=== PATIENT | female | born 1985 | race Caucasian/White ===

== ENCOUNTER 2022-02-13 08:54 | Day surgery (SDC) | payer BC ==
[2022-02-10 09:32] VITALS: BMI 19.2
[2022-02-13] MEDS ORDERED: Isosulfan Blue 50 MG/5 ML VIAL ONE (11:20)
[2022-02-13] MEDS ORDERED: SUGAMMADEX SODIUM 200 MG/2 ML VIAL ONE (11:56)
[2022-02-13] MEDS ORDERED: CEFAZOLIN 2 GM VIAL ONE (11:57)
[2022-02-13] MEDS ORDERED: HYDROmorphone 0.5 MG/0.5 ML SYRINGE ONE (11:57)
[2022-02-13] MEDS ORDERED: Propofol 1,000 MG/100 ML VIAL IV ONE (11:57)
[2022-02-13] MEDS ORDERED: Midazolam HCl 2 mg/2 ml Vial ONE (12:08)
[2022-02-13] MEDS ORDERED: EPINEPHrine 1 MG/ML AMP ONE (14:34)
[2022-02-13] MEDS ORDERED: Bupivacaine PF 0.5% 30 ML VIAL ONE (14:34)
[2022-02-13] MEDS ORDERED: HYDROcodone/Acetaminophen 5/325 mg Tablet PO PRN (15:35)
== END 2022-02-13 16:25 | disposition home or self-care (01) ==
LOC: CSHSDC 08:54
PROVIDERS: ATTEND Surgery
PROC: 07B50ZX Excision of Right Axillary Lymphatic, Open Approach, Diagnostic (ICD-10-PCS; principal; 2022-02-13)
PROC: 0HTT0ZZ Resection of Right Breast, Open Approach (ICD-10-PCS; principal; 2022-02-13)
DX: C50.411 Malignant neoplasm of upper-outer quadrant of right female breast (principal); C50.811 Malignant neoplasm of overlapping sites of right female breast; C77.3 Secondary and unspecified malignant neoplasm of axilla and upper limb lymph nodes; Z79.899 Other long term (current) drug therapy
CPT/HCPCS: 78195; 88305; 88307; A9541; C1713; J0171; J1170; J2250; J2704; Q9968; S0020

== ENCOUNTER 2022-03-27 15:08 | Outpatient (CLI) | payer BC | END 2022-03-27 15:09 | disposition home or self-care (01) | LOC: CSHRAD 15:08 | PROVIDERS: ATTEND Nurse Practitioner Acute Care | DX: Z01.810 Encounter for preprocedural cardiovascular examination (principal); C50.411 Malignant neoplasm of upper-outer quadrant of right female breast; C79.51 Secondary malignant neoplasm of bone | CPT/HCPCS: 93005; 93010 ==

== ENCOUNTER 2022-04-17 13:10 | Outpatient (CLI) | payer BC | END 2022-04-17 13:11 | disposition home or self-care (01) | LOC: CSHEKG 13:10 | PROVIDERS: ATTEND Internal Medicine Hematology & Oncology | DX: C50.411 Malignant neoplasm of upper-outer quadrant of right female breast (principal); C79.51 Secondary malignant neoplasm of bone | CPT/HCPCS: 93005; 93010 ==

== ENCOUNTER 2022-11-20 05:49 | Day surgery (SDC) | payer BC ==
[2022-11-17 13:07] VITALS: BMI 20.4
[2022-11-20] MEDS ORDERED: Bupivacaine PF 0.5% 30 ML VIAL ONE (06:19)
[2022-11-20] MEDS ORDERED: EPINEPHrine 1 MG/ML VIAL ONE (06:19)
[2022-11-20] MEDS ORDERED: Ondansetron PF 4 MG/2 ML Vial ONE (06:39)
[2022-11-20] MEDS ORDERED: PROPOFOL 40 ML ONE (06:39)
[2022-11-20] MEDS ORDERED: fentaNYL 50 mcg/mL 1 mL Vial ONE (06:39)
[2022-11-20] MEDS ORDERED: Lidocaine 1% PF 5 ML VIAL ONE (06:40)
[2022-11-20] MEDS ORDERED: Lidocaine 2% 6 ML (Jelly) SYR ONE (06:45)
[2022-11-20] MEDS ORDERED: Acetaminophen 325 MG TAB PO PRN (07:41)
[2022-11-20] MEDS ORDERED: HYDROcodone/Acetaminophen 5/325 mg Tablet PO PRN (07:41)
== END 2022-11-20 08:35 | disposition home or self-care (01) ==
LOC: CSHSDC 05:49
PROVIDERS: ATTEND Surgery
PROC: 0JH60WZ Insertion of Totally Implantable Vascular Access Device into Chest Subcutaneous Tissue and Fascia, Open Approach (ICD-10-PCS; principal; 2022-11-20)
DX: C77.9 Secondary and unspecified malignant neoplasm of lymph node, unspecified (principal); C50.919 Malignant neoplasm of unspecified site of unspecified female breast; Z86.718 Personal history of other venous thrombosis and embolism; Z90.10 Acquired absence of unspecified breast and nipple
CPT/HCPCS: 71045; C1788; J0171; J1642; J2405; J2704; J3010; S0020